=== PATIENT | female | born 1965 | race Caucasian/White ===

== ENCOUNTER → 2020-02-03 10:03 | Outpatient (CLI) | payer BC, SELFPAY ==
--- NOTE | 2020-02-03 | DI.MRI.S_ITS ---
PROCEDURE: MR LUMBAR SPINE WO/W CON INDICATIONS: Radiculopathy, lumbar region TECHNIQUE: Noncontrast sagittal T1 spin echo and T2 fast spin echo, sagittal STIR, axial T1 and T2 fast spin echo through the lumbar spine. In cases with scoliosis, additional coronal T2 fast spin echo may be performed. After the administration of contrast, sagittal and axial T1 spin echo with fat saturation through the lumbar spine. COMPARISON: [facility], , US PELVIC COMPLETE, 02/03/2020, 10:15. FINDINGS: Image quality: Diagnostic, with note made of motion artifact. Alignment and curvature: There is normal bony alignment. Marrow: Marrow is of normal overall signal. No acute vertebral body compression fractures. No suspicious marrow enhancement. Spinal cord: Conus medullaris terminates at the T12-L1 level. Visualized spinal cord demonstrates normal signal, without suspicious enhancement. Paraspinous soft tissues: No paravertebral masses or abnormal enhancement. T11-T12: Moderate loss of disc height is seen. Loss of disc signal is seen. Bridging endplate osteophytes are seen. Mild to moderate disc bulge is seen. No significant neural foraminal or central canal narrowing can be seen. T12-L1: The disc height is well-preserved. Loss of disc signal is seen at this level. There is a remote appearing remote Schmorl's node seen involving the superior endplate of L1. Mild to moderate disc bulge is seen, which is eccentric to the left. There is mild to moderate left-sided and no significant right-sided neural foraminal narrowing seen. No significant central canal narrowing is seen. L1-L2: The disc height is well-preserved. Loss of disc signal is seen at this level. Mild to moderate disc bulge is seen, which is slightly eccentric to the right. Moderate facet joint hypertrophy is seen. Associated hypertrophy of the ligamentum flavum can be seen. There is mild right-sided and no left-sided neural foraminal narrowing seen. Mild central canal narrowing is seen. L2-L3: The disc height is well-preserved. Loss of disc signal is seen at this level. Mild to moderate disc bulge is seen, which is eccentric to the right. Moderate prominent facet hypertrophy is seen. Associated hypertrophy of the ligamentum flavum can be seen. Mild to moderate bilateral neural foraminal narrowing is seen. There is at least moderate central canal narrowing seen, as on series 5, image 16. L3-L4: The disc height is well-preserved. Loss of disc signal is seen at this level. Mild to moderate disc bulge is seen. Moderate prominent facet hypertrophy is seen at this level. No significant neural foraminal narrowing is seen. Mild central canal narrowing is seen. L4-L5: At least moderate loss of disc height and disc signal can be seen. Moderate disc bulge is seen, which is eccentric to the right. There is a central disc extrusion, with mild superior migration of the disc material. Prominent facet hypertrophy is seen at this level. There is moderate bilateral neural foraminal narrowing seen, right worse than left. Moderate central canal narrowing is seen. L5-S1: The disc height is well-preserved. Loss of disc signal is seen at this level. Mild to moderate disc bulge is seen. Prominent facet hypertrophy is seen at this level. There is mild right-sided and moderate to severe left-sided neural foraminal narrowing seen. There is a degree of compression seen upon the exiting left L5 nerve root. Moderate central canal narrowing is seen. IMPRESSION: Multiple levels of lumbar spine degenerative change are seen, which are most prominent at L4-5 and L5-S1. Dictated by: Manjeet Nava M.D. on 02/03/2020 at 12:49 Approved by: Manjete Nava M.D. on 02/03/2020 at 12:55
--- NOTE | 2020-02-03 | DI.US.S_ITS ---
PROCEDURE: US PELVIC COMPLETE INDICATIONS: Radiculopathy, lumbar region,Lower abdominal pain TECHNIQUE: Real-time scanning was performed of the pelvic organs, with image documentation. Additional endovaginal scanning was necessary due to incomplete visualization of the adnexal and endometrial structures by transabdominal scanning. COMPARISON: [facility], MR, MR LUMBAR SPINE WO/W CON, 02/03/2020, 11:07. FINDINGS: Transabdominal scanning: Limited scanning through the kidneys shows no hydronephrosis. No pathologic free abdominal or pelvic fluid. Endovaginal scanning: Uterus: Uterus is normal in size at 5.8 x 2.8 x 3.6 cm. The endometrial stripe measures 15.2 mm. Ovaries: The right ovary measures 1.9 x 1.2 x 1 cm. The left ovary measures 1.9 x 0.7 x 0.9 cm. The ovaries have a normal sonographic appearance. No adnexal masses are seen. IMPRESSION: The endometrial stripe measures 15.2 mm. If this patient is postmenopausal, then this would be considered to be abnormally thickened and correlation would be recommended with endometrial histology. No additional pelvic ultrasound abnormality is seen. Dictated by: Manjeet Nava M.D. on 02/03/2020 at 12:18 Approved by: Manjeet Nava M.D. on 02/03/2020 at 12:20
== END ==
PROVIDERS: PCP Internal Medicine; Referring Provider Internal Medicine; Visit Provider Internal Medicine
DX: M47.26 Other spondylosis with radiculopathy, lumbar region (principal); M47.27 Other spondylosis with radiculopathy, lumbosacral region; R10.30 Lower abdominal pain, unspecified
CPT/HCPCS: 72158; 76830; 76856